=== PATIENT | female | born 1960 | race Caucasian/White ===

== ENCOUNTER 2017-01-26 21:12 | Emergency (ER) | payer OTHER ==
[~2017-01-26] VITALS: Ht 160 cm; Wt 79.9 kg
[~2017-01-26 21:12] MED LIST: AMLODIPINE BESYL5 MG PO; AMLODIPINE PO; ASACOL400 MG PO; ATARAX,VISTARIL25 MG PO; ATORVASTATIN CA20 MG PO; ATROVASTATIN PO; BENADRYL ALLERG25 MG PO; BENTYL10 MG PO; BENTYL20 MG PO; CHANTIX1 MG PO; CITALOPRAM HBR40 MG PO; CLONAZEPAM0.5 MG PO; CLONIDINE HCL0.1 MG PO; CRESTOR10 MG PO; CYCLOBENZAPRINE10 M1 PO; DELTASONE20 MG PO; DICYCLOMINE HCL10 MG PO; DOXYCYCLINE HY100 MG PO; EFFEXOR100 MG PO; ENTOCORT EC3 MG PO; FENTANYL1 EAC5 TD; HYDROCHLOROTHIA25 MG PO; HYDROCHLOROTHIA50 MG PO; HYDROCODON-ACE1 EAC7 PO; INDOCIN25 MG PO; IRON325 MG PO; K-DUR20 MEQ PO; KEFLEX500 MG PO; KENALOG,ARISTOC80 G1 TP; KLOR-CON M2020 MEQ PO; LOSARTAN POTASS50 MG PO; LYRICA100 MG PO; LYRICA50 MG PO; METHOTREXATE2.5 MG PO; MORPHINE SULFAT15 M1 PO; MORPHINE SULFAT15 MG PO; MORPHINE SULFAT60 M1 PO; MORPHINE SULFAT60 MG PO; MOTRIN600 MG PO; MS CONTIN,ORAMO60 MG PO; NORVASC5 MG PO; OMEPRAZOLE20 MG PO; OXYCODONE15 MG PO; PENTASA250 MG PO; POTASSIUM CHLO20 ME1 PO; REMICADE10 MG/ML IV; RESTORIL30 MG PO; SOMA350 MG PO; TOPROL XL100 MG PO; TRAMADOL HCL50 MG PO; VALIUM5 MG PO; WELLBUTRIN SR150 MG PO; ZANAFLEX4 M1 PO; ZOLPIDEM TARTRA10 MG PO
[2017-01-26 21:54] LABS: BASOPHIL COUNT 0.1 K/uL (0-0.1); EOSINOPHIL (%) 3.2 % (0-5); EOSINOPHIL COUNT 0.4 K/uL (0-0.3); HEMATOCRIT 34.4 % (36.0-46.0); IMMATURE GRANULOCYTE (%) 0.4 % (0.0-0.7); IMMATURE GRANULOCYTE COUNT 0.1 K/uL; INSTRUMENT ABS NEUTROPHIL CT 8.9 K/uL; LYMPHOCYTE COUNT 3.2 K/uL (1.0-2.8); MCH 26.6 PG (29.0-34.0); MCHC 32.3 G/DL (30.0-36.0); MCV 82.3 FL (83-99); MEAN PLAT.VOLUME 8.2 uM^3 (9.5-12.4); MONOCYTE (%) 9.3 % (3-12); MONOCYTE COUNT 1.3 K/uL (0-0.8); NEUTROPHIL (%) 63.7 % (45-76); NEUTROPHIL COUNT 8.9 K/uL (1.8-6.4); PLATELET COUNT 381 K/uL (156-360); RBC DIS.WIDTH-CV 14.2 % (11.8-14.6); RBC DIS.WIDTH-SD 42.1 % (39-53); RED BLOOD COUNT 4.18 M/uL (3.80-5.20); WHITE BLOOD COUNT 13.9 K/uL (4.1-10.2)
[2017-01-26 22:05] LABS: AMYLASE 44 IU/L (1-118); CHLORIDE 101 mEq/L (99-109); POTASSIUM 3.5 mEq/L (3.7-5.4); SODIUM 138 mEq/L (136-147)
[2017-01-26 22:06] LABS: GLUCOSE 100 mg/dL (70-99)
[2017-01-26 22:08] LABS: ANION GAP 11 MEQ/L (2-14)
[2017-01-26 22:10] LABS: GFR ESTIMATE (CALCULATED) > 59 mL/min/; SERUM ETHYL ALCOHOL < 10 mg/dL
[2017-01-26 22:11] LABS: UREA NITROGEN (BUN) 10 mg/dL (9-23)
[2017-01-26 22:13] LABS: LIPASE 27 U/L (1.0-51.0)
[2017-01-26 22:22] LABS: ADD MIUA? YES; BILIRUBIN NEGATIVE; BLOOD SMALL; COLOR STRAW ((YELLOW)); GLUCOSE (STRIP) NEGATIVE; KETONES NEGATIVE; LEUKOCYTES NEGATIVE; NITRITE NEGATIVE; PROTEIN (STRIP) NEGATIVE; SPECIFIC GRAVITY 1.012 (1.000-1.030); UROBILINOGEN 0.2 MG/DL (0.2-1.0)
[2017-01-26 22:26] LABS: BACTERIA NONE SEEN /HPF; EPITHELIAL CELLS RARE /HPF; MUCUS NONE SEEN /LPF; RED BLOOD CELLS 0-5 /HPF (0-5); UCUL ADDED? NO; WHITE BLOOD CELLS 0-5 /HPF (0-5)
[2017-01-26 22:30] LABS: AMPHETAMINE NEGATIVE (500 ng/mL); BARBITURATES NEGATIVE (200 ng/mL); BENZODIAZEPINES NEGATIVE (150 ng/mL); COCAINE NEGATIVE (150 ng/mL); INTERNAL CONTROLS VALID? YES; METHADONE NEGATIVE (200 ng/mL); METHAMPHETAMINE NEGATIVE (500 ng/mL); OPIATES (MORPHINE) NEGATIVE (100 ng/mL); OXYCODONE NEGATIVE (100 ng/mL); PHENCYCLIDINE NEGATIVE (25 ng/mL); PROPOXYPHENE NEGATIVE (300 ng/mL); THC CANNABINOIDS NEGATIVE (50 ng/mL); TRICYCLIC ANTIDEPRESSANTS NEGATIVE (300 ng/mL)
[2017-01-26 23:59] VITALS: BP 162/91
== END 2017-01-27 00:19 | disposition home or self-care (01) ==
LOC: EME → EDBD 21:12 → TRA 21:12 → EME 21:12 → TRA 01-27 00:19
PROVIDERS: Emergency Medicine
DX: S06.0X0A Concussion without loss of consciousness, initial encounter (principal); S00.01XA Abrasion of scalp, initial encounter; Y00.XXXA Assault by blunt object, initial encounter; I10 Essential (primary) hypertension; K21.9 Gastro-esophageal reflux disease without esophagitis; G89.29 Other chronic pain; M54.9 Dorsalgia, unspecified; Z79.891 Long term (current) use of opiate analgesic; F17.200 Nicotine dependence, unspecified, uncomplicated
CPT/HCPCS: 70450; 71010; 72125; 73090; 80048; 81003; 82150; 83690; 85025; 86850; 86900; 86901; 99281; 99285; G0480; J2270; J2405; J7030

== ENCOUNTER 2017-05-31 11:35 | Emergency (ER) | payer OTHER ==
[~2017-05-31] VITALS: Ht 160 cm; Wt 79.0 kg
[2017-05-31 12:31] LABS: EOSINOPHIL COUNT 0.4 K/uL (0-0.3); HEMATOCRIT 33.6 % (36.0-46.0); IMMATURE GRANULOCYTE (%) 0.5 % (0.0-0.7); IMMATURE GRANULOCYTE COUNT 0.1 K/uL; INSTRUMENT ABS NEUTROPHIL CT 12.2 K/uL; LYMPHOCYTE COUNT 3.9 K/uL (1.0-2.8); MCH 25.7 PG (29.0-34.0); MCHC 32.1 G/DL (30.0-36.0); MEAN PLAT.VOLUME 8.2 uM^3 (9.5-12.4); MONOCYTE (%) 9.5 % (3-12); MONOCYTE COUNT 1.8 K/uL (0-0.8); NEUTROPHIL (%) 66.3 % (45-76); NEUTROPHIL COUNT 12.2 K/uL (1.8-6.4); PLATELET COUNT 364 K/uL (156-360); RBC DIS.WIDTH-CV 15.7 % (11.8-14.6); RBC DIS.WIDTH-SD 45.2 % (39-53); WHITE BLOOD COUNT 18.4 K/uL (4.1-10.2)
[2017-05-31 12:54] LABS: TROP-I INTERPRETATION NEGATIVE; TROPONIN-I < 0.01 ng/mL (0.0-0.30)
[2017-05-31 13:01] LABS: CHLORIDE 96 mEq/L (99-109); POTASSIUM 3.4 mEq/L (3.7-5.4); SODIUM 134 mEq/L (136-147)
[2017-05-31 13:04] LABS: GLUCOSE 100 mg/dL (70-99)
[2017-05-31 13:05] LABS: ANION GAP 13 MEQ/L (2-14)
[2017-05-31 13:06] LABS: TOTAL BILIRUBIN 0.4 mg/dL (0.0-1.0)
[2017-05-31 13:07] LABS: ALKALINE PHOSPHATASE 93 IU/L (3-129); GFR ESTIMATE (CALCULATED) > 59 mL/min/
[2017-05-31 13:08] LABS: UREA NITROGEN (BUN) 10 mg/dL (9-23)
[2017-05-31] MEDS ORDERED: CLINDAMYCIN HC150 MG PO (14:39)
[2017-05-31] MEDS ORDERED: MECLIZINE HCL12.5 M1 PO (14:39)
[2017-05-31] MEDS ORDERED: CLINDAMYCIN HC300 MG PO (14:39)
[2017-05-31 14:56] VITALS: BP 102/60
== END 2017-05-31 15:09 | disposition home or self-care (01) ==
LOC: EME 11:35
PROVIDERS: Emergency Medicine
DX: L03.311 Cellulitis of abdominal wall (principal); R42 Dizziness and giddiness; R11.0 Nausea; K76.0 Fatty (change of) liver, not elsewhere classified; Z90.49 Acquired absence of other specified parts of digestive tract; Z90.710 Acquired absence of both cervix and uterus; I10 Essential (primary) hypertension; F17.200 Nicotine dependence, unspecified, uncomplicated
CPT/HCPCS: 74177; 80053; 84484; 85025; 99281; 99284; J2765

== ENCOUNTER 2017-06-14 16:31 | Emergency (ER) | payer OTHER ==
[~2017-06-14] VITALS: Ht 160 cm; Wt 80.2 kg
[~2017-06-14 16:31] MED LIST changes: +CLINDAMYCIN HC150 MG PO; +CLINDAMYCIN HC300 MG PO; +MECLIZINE HCL12.5 M1 PO
[2017-06-14] MEDS ORDERED: BENZOYL PEROXI TP (17:24)
[2017-06-14 17:32] VITALS: BP 128/78
[2017-06-14] MEDS ORDERED: CLEOCIN300 MG PO (20:10)
== END 2017-06-14 17:33 | disposition home or self-care (01) ==
LOC: EME 16:31
DX: L73.9 Follicular disorder, unspecified (principal); K50.90 Crohn's disease, unspecified, without complications
CPT/HCPCS: 99281; 99283

== ENCOUNTER 2017-06-14 19:21 | Emergency (ER) | payer OTHER ==
[~2017-06-14] VITALS: Ht 160 cm; Wt 80.1 kg
[~2017-06-14 19:21] MED LIST changes: +BENZOYL PEROXI TP
[2017-06-14] MEDS ORDERED: CLEOCIN300 MG PO (20:10)
[2017-06-14 20:26] VITALS: BP 154/90
== END 2017-06-14 20:26 | disposition home or self-care (01) ==
LOC: EME 19:21
DX: L73.9 Follicular disorder, unspecified (principal); F32.9 Major depressive disorder, single episode, unspecified; G25.81 Restless legs syndrome; I10 Essential (primary) hypertension; K21.9 Gastro-esophageal reflux disease without esophagitis; K50.90 Crohn's disease, unspecified, without complications; Z90.49 Acquired absence of other specified parts of digestive tract; Z88.7 Allergy status to serum and vaccine
CPT/HCPCS: 99281; 99284

== ENCOUNTER 2017-06-23 12:18 | Emergency (ER) | payer OTHER ==
[~2017-06-23] VITALS: Ht 160 cm; Wt 78.5 kg
[~2017-06-23 12:18] MED LIST changes: +CLEOCIN300 MG PO
[2017-06-23] MEDS ORDERED: NAPROSYN500 MG PO (14:04)
[2017-06-23 14:24] VITALS: BP 132/81
== END 2017-06-23 14:24 | disposition home or self-care (01) ==
LOC: EME 12:18
DX: S92.505A Nondisplaced unspecified fracture of left lesser toe(s), initial encounter for closed fracture (principal); W22.09XA Striking against other stationary object, initial encounter
CPT/HCPCS: 73630; 99281; 99283

== ENCOUNTER 2017-10-23 15:52 | Emergency (ER) | payer OTHER ==
[~2017-10-23] VITALS: Ht 160 cm; Wt 75.7 kg
[~2017-10-23 15:52] MED LIST changes: +AMBIEN5 MG PO; +BUSPAR10 MG PO; +NAPROSYN500 MG PO
[2017-10-23 20:20] VITALS: BP 147/80
== END 2017-10-23 20:22 | disposition home or self-care (01) ==
LOC: EME 15:52
DX: S09.90XA Unspecified injury of head, initial encounter (principal); R42 Dizziness and giddiness; W18.2XXA Fall in (into) shower or empty bathtub, initial encounter; Y92.002 Bathroom of unspecified non-institutional (private) residence as the place of occurrence of the external cause; M25.551 Pain in right hip; M79.672 Pain in left foot; I10 Essential (primary) hypertension; F17.200 Nicotine dependence, unspecified, uncomplicated; F32.9 Major depressive disorder, single episode, unspecified; K21.9 Gastro-esophageal reflux disease without esophagitis; K50.90 Crohn's disease, unspecified, without complications; Z88.5 Allergy status to narcotic agent
CPT/HCPCS: 70450; 70486; 73502; 73610; 99281; 99284; J1885

== ENCOUNTER 2018-02-15 12:34 | Emergency (ER) | payer OTHER ==
[~2018-02-15] VITALS: Ht 160 cm; Wt 73.5 kg
[2018-02-15 12:39] VITALS: BP 166/86
[2018-02-15] MEDS ORDERED: PERIDEX473 ML MM (13:32)
[2018-02-15] MEDS ORDERED: CLEOCIN300 MG PO (13:32)
== END 2018-02-15 13:45 | disposition home or self-care (01) ==
LOC: EME 12:34
DX: K04.7 Periapical abscess without sinus (principal); K02.9 Dental caries, unspecified; K50.90 Crohn's disease, unspecified, without complications; Z88.5 Allergy status to narcotic agent; Z88.7 Allergy status to serum and vaccine
CPT/HCPCS: 99281; 99283

== ENCOUNTER 2018-06-09 14:22 | Emergency (ER) | payer OTHER ==
[~2018-06-09] VITALS: Ht 160 cm; Wt 75.0 kg
[~2018-06-09 14:22] MED LIST changes: +PERIDEX473 ML MM
[2018-06-09 15:24] LABS: HEMATOCRIT 38.2 % (36.0-46.0); HEMOGLOBIN 12.7 G/DL (11.9-15.5); MCH 26.3 PG (29.0-34.0); MCHC 33.2 G/DL (30.0-36.0); MCV 79.1 FL (83-99); PLATELET COUNT 427 K/uL (156-360); RBC DIS.WIDTH-CV 16.9 % (11.8-14.6); RBC DIS.WIDTH-SD 47.8 % (39-53); RED BLOOD COUNT 4.83 M/uL (3.80-5.20); WHITE BLOOD COUNT 13.2 K/uL (4.1-10.2)
[2018-06-09 15:33] LABS: CHLORIDE 104 mEq/L (99-109); SODIUM 138 mEq/L (136-147)
[2018-06-09 15:35] LABS: GLUCOSE 101 mg/dL (70-99)
[2018-06-09 15:39] LABS: CREATININE 0.8 mg/dL (0.6-1.3); GFR ESTIMATE (CALCULATED) > 59 mL/min/
[2018-06-09 15:40] LABS: UREA NITROGEN (BUN) 9 mg/dL (9-23)
[2018-06-09 15:47] LABS: TROP-I INTERPRETATION NEGATIVE; TROPONIN-I < 0.01 ng/mL (0.0-0.30)
[2018-06-09 16:03] LABS: D-DIMER ELISA < 150.00 ng/mLDDU (<230)
[2018-06-09 17:51] LABS: TROP-I INTERPRETATION NEGATIVE; TROPONIN-I < 0.01 ng/mL (0.0-0.30)
[2018-06-09 18:39] VITALS: BP 148/87
== END 2018-06-09 18:39 | disposition home or self-care (01) ==
LOC: EME 14:22
PROVIDERS: Nurse Practitioner Family
DX: R07.9 Chest pain, unspecified (principal); R06.00 Dyspnea, unspecified; G43.909 Migraine, unspecified, not intractable, without status migrainosus; I10 Essential (primary) hypertension; K21.9 Gastro-esophageal reflux disease without esophagitis; K50.90 Crohn's disease, unspecified, without complications; E78.00 Pure hypercholesterolemia, unspecified; F32.9 Major depressive disorder, single episode, unspecified; F17.200 Nicotine dependence, unspecified, uncomplicated; Z90.49 Acquired absence of other specified parts of digestive tract; Z88.5 Allergy status to narcotic agent; Z88.7 Allergy status to serum and vaccine
CPT/HCPCS: 71046; 80048; 84484; 85027; 85379; 93005; 94640; 99281; 99284